=== PATIENT | male | born 1985 | race Caucasian/White ===

== ENCOUNTER 2016-10-23 17:39 | Emergency (ER) | payer MEDICAID ==
[2016-10-23 17:39] VITALS: BMI 25.0
[2016-10-23 17:45] VITALS: TEMP 98.4
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
[2016-10-23 18:25] LABS: BASO # 0.1 K/uL (0.0-0.2); BASO % 1.5 % (0.0-2.0); EOS # 0.1 K/uL (0.0-0.7); EOS % 1.1 % (0.0-4.0); HEMATOCRIT 40.9 % (35.0-51.0); LYMPH # 1.4 K/uL (1.0-4.3); LYMPH % 27.2 % (20.0-40.0); MEAN CORPUSCULAR HEMOGLOBIN 31.5 pg (27.0-31.0); MEAN CORPUSCULAR HGB CONC 33.9 g/dL (33.0-37.0); MONO # 0.3 K/uL (0.0-0.8); MONO % 5.1 % (0.0-10.0); NEUT # 3.5 K/uL (1.8-7.0); NEUT % 65.1 % (50.0-75.0); NRBC % 0.1 % (0.0-0.0); RED CELL DISTRIBUTION WIDTH 13.2 % (11.5-14.5); WHITE BLOOD COUNT 5.3 K/uL (4.8-10.8)
[2016-10-23 18:37] LABS: ALCOHOL SERUM < 10 mg/dl (0-10); BLOOD UREA NITROGEN 17 mg/dl (9-20); CALCIUM 9.1 mg/dL (8.4-10.2); CARBON DIOXIDE 23 mmol/L (22-30); CHLORIDE 106 mmol/L (98-107); GFR AFRICAN-AMERICAN > 60; GLUCOSE,RANDOM 161 mg/dL (75-110); POTASSIUM 3.6 MMOL/L (3.6-5.0); SODIUM 144 mmol/l (132-148)
--- NOTE | 2016-10-23 19:22 | ED PDOC ---
- Laboratory Results Result Diagrams: 10/23/16 18:00 10/23/16 18:00 - ECG O2 Sat by Pulse Oximetry: 97 Medical Decision Making Medical Decision Makin:00 Patient is signed out to me by Olivier Lucas III, DO pending CT scan, reevaluation, and final disposition. [address]: normal. Pt. awake and alert, A&O x 3 w/ steady gait. Scribe Attestation: Documented by Tosha Turner, acting as a scribe for Miles Browne MD. Provider Scribe Attestation: All medical record entries made by the Scribe were at my direction and personally dictated by me. I have reviewed the chart and agree that the record accurately reflects my personal performance of the history, physical exam, medical decision making, and the department course for this patient. I have also personally directed, reviewed, and agree with the discharge instructions and disposition. Disposition - Clinical Impression Clinical Impression: Altered mental status, Head injury - POA Present On Arrival: None - Disposition Referrals: [facility] [Outside] Disposition: Routine/Home Disposition Time: 21:30 Condition: GOOD Instructions: Head Injury (ED)
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
[2016-10-23 21:48] VITALS: BP 112/76; PULSE 88; RESP 16
[2016-10-24 01:20] VITALS: O2SAT 97
== END 2016-10-23 21:15 | disposition home or self-care (01) ==
LOC: H.ER 17:39
DX: R41.82 Altered mental status, unspecified (principal); S09.90XA Unspecified injury of head, initial encounter; Y04.0XXA Assault by unarmed brawl or fight, initial encounter; Y92.89 Other specified places as the place of occurrence of the external cause; J45.909 Unspecified asthma, uncomplicated
CPT/HCPCS: 70450; 72125; 80048; 85025; 99285; G0480

== ENCOUNTER 2017-06-08 06:31 | Emergency (ER) | payer MEDICAID ==
[2017-06-08 06:31] VITALS: BMI 25.0
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
[2017-06-08 06:42] VITALS: BP 136/88; PULSE 72; RESP 16; TEMP 97.2; O2SAT 99
== END 2017-06-08 06:43 | disposition home or self-care (01) ==
LOC: H.ER 06:31
DX: F10.129 Alcohol abuse with intoxication, unspecified (principal); F32.9 Major depressive disorder, single episode, unspecified; J45.909 Unspecified asthma, uncomplicated

== ENCOUNTER 2017-06-19 01:57 | Emergency (ER) | payer MEDICAID ==
[2017-06-19 01:58] VITALS: BMI 25.0
[2017-06-19 02:09] VITALS: BP 132/56; PULSE 83; RESP 18; TEMP 98; O2SAT 99
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
== END 2017-06-19 02:13 | disposition home or self-care (01) ==
LOC: H.ER 01:57
DX: F10.129 Alcohol abuse with intoxication, unspecified (principal); F32.9 Major depressive disorder, single episode, unspecified; J45.909 Unspecified asthma, uncomplicated

== ENCOUNTER 2017-07-13 16:01 | Emergency (ER) | payer MEDICAID ==
[2017-07-13 16:02] VITALS: BMI 25.0
[2017-07-13 16:07] VITALS: BP 127/74; PULSE 84; RESP 20; TEMP 97.6; O2SAT 100
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
== END 2017-07-13 16:30 | disposition home or self-care (01) ==
LOC: H.ER 16:01
DX: Z00.00 Encounter for general adult medical examination without abnormal findings (principal)

== ENCOUNTER 2018-07-21 02:37 | Emergency (ER) | payer MEDICAID, OTHER ==
[2018-07-21 02:37] VITALS: BMI 23.3
[2018-07-21 03:58] VITALS: BP 107/70; PULSE 78; RESP 16; TEMP 97.6; O2SAT 99
== END 2018-07-21 04:00 | disposition left against medical advice (07) ==
LOC: H.ER 02:37
DX: Z02.89 Encounter for other administrative examinations (principal)